=== PATIENT | female | born 1985 | race Hispanic/Latino ===

== ENCOUNTER 2019-11-13 22:27 | Emergency (ER) | payer SELFPAY ==
[~2019-11-13] VITALS: Ht 152.4 cm; Wt 52.6 kg
[2019-11-13] MEDS ORDERED: EPINEPHRINE 0.3 MG/0.3 ML PEN.INJCTR SC STA (22:47)
[2019-11-13] MEDS ORDERED: FAMOTIDINE 20 MG/2 ML VIAL IV STA (22:47)
[2019-11-13] MEDS ORDERED: EPINEPHRINE HCL 1:1000 1ML 1 MG/ML AMP ONE (22:58)
[2019-11-13] MEDS ORDERED: DEXAMETHASONE SOD PHOS INJ 4 MG/ML VIAL ONE (22:59)
[2019-11-13] MEDS ORDERED: FAMOTIDINE 20 MG/2 ML VIAL IV ONE (22:59)
[2019-11-13] MEDS ORDERED: DIPHENHYDRAMINE HCL INJ 50 MG/ML VIAL ONE (22:59)
[2019-11-13] MEDS ORDERED: DIPHENHYDRAMINE HCL INJ 50 MG/ML VIAL IV ONE (23:00)
[2019-11-13] MEDS ORDERED: DEXAMETHASONE SOD PHOS 10 MG/1 ML VIAL IV ONE (23:00)
--- NOTE | 2019-11-13 23:29 | Emergency Department Note ---
History of Present Illnes History of Present Illness Chief Complaint: Skin Rash or Abscess History of Present Illness This is a 34 year old female Chief Complaint Comment PT C/O POSSIBLE ALLERGIC REACTION RASH TO STERLING LOWER EXTEMITIES SINCE SUNDAY (4 DAYS), CALLED HER DOCTOR AND TOLD TO USE HYDROCORTIZONE CREAM, BUT NOT HELPING, PT STATES THIS EVENING FELT LIKE HER MOUTH AND THROAT WERE "SMALLER" NOT NECESSARILY SWOLLEN BUT JUST FELT SMALLER SO TOOK 1 [facility] JUST SURGICAL SERVICES TECH TO ER. DENIES ANY SOB, PTS MOUTH, LIPS, THROAT, FACE DO NOT APPEAR TO BE SWOLLEN. . Historian: Patient Arrival Mode: Car Onset (how long ago): day(s) (2) Location: legs Quality: itching Radiation: Denies non-radiation, Denies back, Denies neck, Denies extremity, Denies abdomen, Denies periumbilical, Denies flank, Denies proximal, Denies distal, Denies other Severity: moderate Onset quality: gradual Duration (how long): day(s) (2) Timing of current episode: intermittent Progression: waxing and waning Chronicity: new Context: Denies recent illness, Denies recent surgery, Denies recent immobilization, Denies recent travel, Denies trauma/injury, Denies new medications, Denies hx of DVT/PE, Denies non-compliance w/ medications, Denies other Relieving factors: none Exacerbating factors: none Associated symptoms: Reports denies other symptoms Treatments prior to arrival: none Past Medical/Family History Physician Review I have reviewed the patient's past medical and family history. Any updates have been documented here. Past Medical History Recent Fever: No Clinical Suspicion of Infectio: No New/Unexplained Change in Ment: No Past Medical History: None Past Surgical History: None Social History Smoking Cessation: Never Smoker Counseling Performed: No Alcohol Use: None Any Illegal Drug Use: No Physically hurt or threatened: No Other Any Pre-Existing Lines (PICC,: No Review of Systems Review of Systems Constitutional: Reports no symptoms EENTM: Reports no symptoms Cardiovascular: Reports no symptoms Respiratory: Reports no symptoms Gastrointestinal: Reports no symptoms Genitourinary: Reports no symptoms Musculoskeletal: Reports no symptoms Integumentary: Reports as per HPI Neurological: Reports no symptoms Psychological: Reports no symptoms Endocrine: Reports no symptoms Hematological/Lymphatic: Reports no symptoms Physical Exam Related Data Allergies: Coded Allergies: miconazole (Verified Allergy, Severe, RASH, 11/13/19) Triage Vital Signs Vital Signs Date Time Temp Pulse Resp B/P (MAP) Pulse Ox O2 Delivery O2 Flow Rate FiO2 11/13/19 22:35 98.7 80 18 145/80 100 Room Air Vital signs reviewed: Yes Physical Exam CONSTITUTIONAL Constitutional: Present well-developed, Present well-nourished HENT HENT: Present normocephalic, Present atraumatic, Present oropharynx clear/moist, Present nose normal HENT L/R: Present left ext ear normal, Present right ext ear normal EYES Eyes: Reports PERRL, Reports conjunctivae normal NECK Neck: Present ROM normal PULMONARY Pulmonary: Present effort normal, Present breath sounds normal CARDIOVASCULAR Cardiovascular: Present regular rhythm, Present heart sounds normal, Present capillary refill normal, Present normal rate GASTROINTESTINAL Abdominal: Present soft, Present nontender, Present bowel sounds normal GENITOURINARY Genitourinary: Present exam deferred SKIN Skin: Present warm, Present dry, Present rash (legs), Present other MUSCULOSKELETAL Musculoskeletal: Present ROM normal NEUROLOGICAL Neurological: Present alert, Present oriented x 3, Present no gross motor or sensory deficits PSYCHOLOGICAL Psychological: Present mood/affect normal, Present judgement normal Assessment & Plan Medical Decision Making MDM dermatitis Reassessment Reassessment better Assessment & Plan Final Impression: (1) Dermatitis (2) Rash Depart Disposition: HOME, SELF-CARE Last Vital Signs Date Time Temp Pulse Resp B/P (MAP) Pulse Ox O2 Delivery O2 Flow Rate FiO2 11/13/19 22:35 98.7 80 18 145/80 100 Room Air Medications in the ED Dexamethasone Sodium Phosphate 10 mg ONCE ONCE IV Last administered on 11/13/19at 23:00; Admin Dose 10 MG; Start 11/13/19 at 23:00; Stop 11/13/19 at 23:01; Status DC Diphenhydramine HCl 25 mg NOW ONCE IV Last administered on 11/13/19at 23:00; A dmin Dose 25 MG; Start 11/13/19 at 23:00; Stop 11/13/19 at 23:01; Status DC Famotidine 20 mg NOW STAT IV Last administered on 11/13/19at 23:00; Admin Dose 20 MG; Start 11/13/19 at 22:47; Stop 11/13/19 at 22:53; Status DC Epinephrine 0.2 mg NOW STAT SC Last administered on 11/13/19at 23:00; Admin Dose 0.2 MG; Start 11/13/19 at 22:47; Stop 11/13/19 at 22:49; Status DC Epinephrine HCl 1 mg STK-MED ONCE .ROUTE ; Start 11/13/19 at 22:58; Stop 11/13/19 at 22:56; Status DC Dexamethasone Sodium Phosphate 12 mg STK-MED ONCE .ROUTE ; Start 11/13/19 at 22:59; Stop 11/13/19 at 22:56; Status DC Diphenhydramine HCl 50 mg STK-MED ONCE .ROUTE ; Start 11/13/19 at 22:59; Stop 11/13/19 at 22:56; Status DC Famotidine 20 mg STK-MED ONCE IV ; Start 11/13/19 at 22:59; Stop 11/13/19 at 22:56; Status DC BERKLEY JURADO MD Nov 13, 2019 23:29
[2019-11-13] MEDS ORDERED: PREDNISONE20 MG PO (23:40)
== END 2019-11-13 23:45 | disposition home or self-care (01) ==
LOC: FSED 22:57
DX: L30.9 Dermatitis, unspecified (principal)
CPT/HCPCS: 99283; J0171; J1100; J1200